=== PATIENT | female | born 1945 | race Asian ===

== ENCOUNTER 2016-12-31 16:53 | Emergency (ER) | payer MEDICARE, OTHER ==
[~2016-12-31 16:53] MED LIST: ASPI-1107 PO; ATOR10TA84 PO; METF-514 PO; TRAM50TA50 PO
== END 2016-12-31 17:08 | disposition left against medical advice (07) ==
LOC: EMS 16:56
DX: R25.1 Tremor, unspecified (principal); Z53.21 Procedure and treatment not carried out due to patient leaving prior to being seen by health care provider